=== PATIENT | female | born 1965 | race Caucasian/White ===

== ENCOUNTER → 2017-07-13 | Outpatient (CLI) | payer OTHER | LOC: FIMAGING 11:27 | PROVIDERS: ATTEND Family Medicine | DX: Z12.31 Encounter for screening mammogram for malignant neoplasm of breast (principal) | CPT/HCPCS: G0202 ==

== ENCOUNTER 2018-03-05 10:47 | Emergency (ER) | payer OTHER ==
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
[2018-03-05] MEDS ORDERED: NS 1,000 ML IV ONE (10:58)
[2018-03-05 11:04] LABS: PLATELET COUNT 223 10^3/uL (150-400)
--- NOTE | 2018-03-05 11:08 | CPEKG ---
Heart Rate: 118 RR Interval: 508 P-R Interval: 160 QRSD Interval: 78 QT Interval: 316 QTC Interval: 443 P Smilax: 67 QRS Smilax: 29 T Wave Smilax: 30 EKG Severity - OTHERWISE NORMAL ECG - EKG Impression: SINUS TACHYCARDIA Electronically Signed By: Sebas Adamson 05-Mar-2018 12:53:01
[2018-03-05] MEDS ORDERED: IOPAMIDOL (ISOVUE 370) 100 ML BTL IV ONE (11:49)
[2018-03-05] MEDS ORDERED: LORazepam 2 MG/ML INJ ONE (12:13)
[2018-03-05] MEDS ORDERED: LORazepam 2 MG/ML INJ IVP ONE (12:17)
[2018-03-05 14:35] VITALS: BP 108/74
== END 2018-03-05 14:35 | disposition home or self-care (01) ==
LOC: EDUNIT#
DX: R55 Syncope and collapse (principal); E86.9 Volume depletion, unspecified; I10 Essential (primary) hypertension; Z87.891 Personal history of nicotine dependence
CPT/HCPCS: 71275; 93005; 96374; 99285; J2060; Q9967; 84484-PO